=== PATIENT | female | born 1995 | race Caucasian/White ===

== ENCOUNTER 2018-06-13 14:00 | Emergency (ER) | payer OTHER ==
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
[2018-06-13 15:27] VITALS: BP 122/64
== END 2018-06-13 15:26 | disposition home or self-care (01) ==
LOC: ED 14:00
DX: S00.83XA Contusion of other part of head, initial encounter (principal); W19.XXXA Unspecified fall, initial encounter; Y92.9 Unspecified place or not applicable
CPT/HCPCS: 70450; 70486; 99282